=== PATIENT | male | born 2000 | race Asian ===

== ENCOUNTER 2020-09-22 09:38 | Outpatient (CLI) | payer BC, SELFPAY ==
--- NOTE | 2020-09-22 09:51 | CT_ITS ---
WS: [id number] CT HEAD TECHNIQUE: Noncontrast and contrast-enhanced CT of the head. CLINICAL INFORMATION: WORSENING HEADACHES COMPARISON: None. DLP: 1851.[address] scans at [facility] use at least one of these dose optimization techniques: automat ed exposure control; mA and/or kV adjustment per patient size (includes targeted exams where dose is matched to clinical indication); or iterative reconstruction. FINDINGS: No evidence of intracranial hemorrhage or mass effect. Ventricular system and basal cisterns are dee nt. Normal doty-white differentiation. No abnormal intracranial enhancement. Paranasal sinuses and mastoid air cells are well aerated. Normal visualized soft tissues. CT/CT head wo/w con [id number] IMPRESSION: 1. No evidence of intracranial hemorrhage or mass effect. 2. Normal doty-white differentiation. 3. No abnormal intracranial enhancement. 4. No acute intracranial findings.
[2020-09-22] MEDS: iohexol 300 mg/mL 100 mL Btl IV (10:14)
== END 2020-09-22 09:39 | disposition home or self-care (01) ==
PROVIDERS: PCP Family Medicine; Visit Provider Family Medicine
DX: R51.9 Headache, unspecified (principal)
CPT/HCPCS: 70470; Q9967